=== PATIENT | female | born 1955 | race Caucasian/White ===

== ENCOUNTER → 2025-06-01 | Emergency (ER) | payer BC ==
[~2025-06-01] VITALS: Ht 167.6 cm; Wt 61.2 kg
[~2025-06-01] MED LIST: IBUPROFEN 400 MG TABLET ONE; KETOROLAC TROMETHAMINE 30 MG INJ ONE; NABU-140 PO; NITR100C11 PO; NITROFURANTOIN/NITROFURAN MAC 100 MG CAPSULE PO ONE
[2025-06-01 02:03] VITALS: BP 176/107; O2SAT 95
[2025-06-01 02:13] LABS: *BILIRUBIN,URIN NEGATIVE (NEGATIVE); *CLARITY,URINE CLEAR (CLEAR); *COLOR,URINE YELLOW (YELLOW); *KETONES,URINE NEGATIVE (NEGATIVE); *PROTEIN,URINE NEGATIVE (NEGATIVE); *UROBILINOGEN,URINE 0.2 E.U./dl (NORMAL); LEUKOCYTE ESTERASE ,URINE TRACE (NEGATIVE); NITRITE, URINE NEGATIVE (NEGATIVE); UGLUCOSE NEGATIVE (NEGATIVE)
[2025-06-01 02:16] LABS: *BLOOD, URINE TRACE (NEGATIVE)
[2025-06-01 02:38] LABS: SQUAMOUS EPITHELIAL CELL,UR FEW /HPF (NONE SEEN)
[2025-06-01] MEDS: NITROFURANTOIN/NITROFURAN MAC 100 MG CAPSULE PO ONE (02:49)
[2025-06-01] MEDS: IBUPROFEN 400 MG TABLET PO ONE (02:49)
[2025-06-01] MEDS: KETOROLAC TROMETHAMINE 30 MG INJ IM ONE (03:01)
[2025-06-01 03:06] VITALS: BP 176/107
== END | disposition home or self-care (01) ==
LOC: ER 01:55
DX: R82.81 Pyuria (principal); M25.552 Pain in left hip; M25.551 Pain in right hip; Z87.440 Personal history of urinary (tract) infections; G89.29 Other chronic pain
CPT/HCPCS: 99283; 81001; 87086; 96372; J1885; 87077; A4606; A4663